=== PATIENT | female | born 1950 | race Caucasian/White ===

== ENCOUNTER 2016-12-30 06:06 | Day surgery (SDC) | payer OTHER ==
--- NOTE | ~2016-12-30 | OP ---
Record Of Operation [facility] [address] [place]. [address] NAME: LETTY DANIELS : 48 STATUS : [place] [facility] [place] PAT#: [id number] AGE: 66 ADM/REG DATE : 12/30/16 MR#: [id number] REPORT SERV DATE: 12/30/16 DICTATED BY: JASEN SWARTZ JR. 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 POSTOPERATIVE DIAGNOSIS: No evidence of malignancy. Final pathology is pending. NAME OF PROCEDURE: Diagnostic and therapeutic bronchoscopy, endobronchial ultrasound, multiple fine-needle aspirations, lior stations 4L, 7, and 11L. SURGEON: Jasen Swartz M.D. RESIDENT SURGEON: Shaquille Fuller MD ANESTHESIA: General endotracheal. FINDINGS: The patient was noted to have normal appearing lymph nodes in the paratracheal, subcarinal ,and hilar regions. We sampled the largest node which was a subcarinal lymph node, as well as the left paratracheal, and left hilar lymph nodes. There were very small lymph nodes in the right paratracheal and even smaller in the right hilar regions. On ultrasound these nodes had a normal architecture with normal vascularity. There was no evidence of malignancy on touch prep. Additional material sent for cell block. Adequate samples were obtained from each lior region. DETAILS OF OPERATION: After adequate general anesthesia, the patient was intubated with an LMA. A diagnostic and therapeutic bronchoscopy was performed with no endobronchial lesions noted. The right upper lobe bronchial stump was intact. Mucous secretions were evacuated. Endobronchial ultrasound was then performed with multiple fine-needle aspirations performed from the three different lior regions. All the nodes on ultrasound looks similar. It did not appear to be pathologic. Touch preps demonstrated normal lymphocytes with no evidence of malignancy. Adequate samples were obtained. Additional material from each three regions were sent for cell block. Final pathology is pending. Adequate hemostasis was then obtained. The procedure this point was terminated. The patient tolerated the procedure well and taken back to recovery room in stable condition. DOUGLAS/LAKEISHA Jasen Swartz Jr., M.D. / [id number] Record Of Operation [facility] [address] [place]. [address] NAME: LETTY DANIELS : 48 [place]US : [place] [facility] [place] PAT#: [id number] AGE: 66 ADM/REG DATE : 12/30/16 MR#: [id number] REPORT SERV DATE: 12/30/16 DICTATED BY: JASEN SWARTZ JR. DATE: 12/30/16 REPORT STATUS : Draft TRANSCRIBED BY: LAKEISHA DATE: 12/30/16 CC: Shotry Agudelo Jr., M.D. Robert F Marcum, M.D.
[~2016-12-30 06:06] MED LIST: ADVAIR250 INH; ALBUTEROL5 INH; AMARYL4 PO; ASAB PO; BIST PO; CARTIA XT120 MG/24 PO; CENTRUM PO; COMBIVENT RESPIM4 GM INH; CYMBALTA60 PO; DEMA20 PO; LANTUS SC; NORCO1 TAB PO; NORV25 PO; PRAVACHOL40 MG PO; PRAVACHOL80 MG PO; PRILO PO; SPIRIVA INH; V5 PO; VICTOZA18 MG/3 ML SC
[2016-12-30 06:38] LABS: BUN (BLOOD UREA NITROGEN) 15 MG/DL (6-23); CHLORIDE, SERUM 108 MMOL/L (96-112); CO2 (CARBON DIOXIDE) 28 MMOL/L (24-34); CREATININE 0.94 MG/DL (0.55-1.02); GFR AFRICAN AMERICAN 73 ML/MIN (>=60); GFR NON AFRICAN AMERICAN 63 ML/MIN (>=60); GLUCOSE, SERUM 181 MG/DL (60-99); POTASSIUM, SERUM 3.9 MMOL/L (3.5-5.3); SODIUM, SERUM 141 MMOL/L (135-148)
[2017-01-20] MEDS ORDERED: DSS PO (07:57)
[2017-01-20] MEDS ORDERED: FIBER POWDER PO (07:58)
[2017-01-20] MEDS ORDERED: PROBIOTICS PO (07:58)
== END 2016-12-30 23:59 | disposition home or self-care (01) ==
LOC: DMU 06:06
PROVIDERS: Anesthesiology; Thoracic Surgery (Cardiothoracic Vascular Surgery)
PROC: 07974ZX Drainage of Thorax Lymphatic, Percutaneous Endoscopic Approach, Diagnostic (ICD-10-PCS; principal; 2016-12-30 08:00)
DX: R91.8 Other nonspecific abnormal finding of lung field (principal); I10 Essential (primary) hypertension; J44.9 Chronic obstructive pulmonary disease, unspecified; Z86.73 Personal history of transient ischemic attack (TIA), and cerebral infarction without residual deficits; G47.33 Obstructive sleep apnea (adult) (pediatric); E11.9 Type 2 diabetes mellitus without complications; F41.9 Anxiety disorder, unspecified; F32.9 Major depressive disorder, single episode, unspecified; K21.9 Gastro-esophageal reflux disease without esophagitis; K44.9 Diaphragmatic hernia without obstruction or gangrene; M19.90 Unspecified osteoarthritis, unspecified site; M79.7 Fibromyalgia; M81.0 Age-related osteoporosis without current pathological fracture; E78.00 Pure hypercholesterolemia, unspecified; I82.4Z2 Acute embolism and thrombosis of unspecified deep veins of left distal lower extremity; R01.1 Cardiac murmur, unspecified; Z88.8 Allergy status to other drugs, medicaments and biological substances; Z96.1 Presence of intraocular lens; Z85.118 Personal history of other malignant neoplasm of bronchus and lung; Z85.3 Personal history of malignant neoplasm of breast; Z98.41 Cataract extraction status, right eye; Z98.42 Cataract extraction status, left eye; Z90.49 Acquired absence of other specified parts of digestive tract; Z98.51 Tubal ligation status; Z87.442 Personal history of urinary calculi; Z90.89 Acquired absence of other organs; Z87.891 Personal history of nicotine dependence
CPT/HCPCS: 80048; 82962; 85014; 85018; 88172; 88173; 88305; 93005; A9270-GY; C1725; J2405; J3010